=== PATIENT | male | born 1955 | race Caucasian/White ===

== ENCOUNTER 2019-05-03 22:08 | Emergency (ER) | payer BC ==
[~2019-05-03] VITALS: Ht 180.3 cm; Wt 98.2 kg
[2019-05-03 22:25] VITALS: BP 172/83
== END 2019-05-03 23:00 ==
LOC: ER 22:08
DX: F10.129 Alcohol abuse with intoxication, unspecified (principal); V87.7XXA Person injured in collision between other specified motor vehicles (traffic), initial encounter; Y93.89 Activity, other specified; Y92.488 Other paved roadways as the place of occurrence of the external cause; Y99.8 Other external cause status; Y90.9 Presence of alcohol in blood, level not specified
CPT/HCPCS: 99283